=== PATIENT | female | born 1985 | race Caucasian/White ===

== ENCOUNTER 2018-01-27 09:08 | Emergency (ER) | payer BC, OTHER ==
[2018-01-27 10:01] VITALS: BP 132/79
--- NOTE | 2018-01-27 11:03 | UC ---
Shoulder Pain HPI - HPI Summary HPI Summary: Pt c/o right arm, shoulder and upper back pain that began ~ mid november. Pt had an "episode" of right hand discoloration, numbness and tingling. Pt still has c/o right hand tingling and pain in right arm and hand. Pt was seen by [facility] Ed and PCP , had CT head, neck and doppler of right upper arm and xray of shoulder, no positive findings with any imaging studies. Pt c/o to have painful tingling in right hand and arm. Has trigger point tenderness in right upper back. c/o decreased ROM of right shoulder and think right shoulder is "lower than left" - History of Current Complaint Chief Complaint: UCUpperExtremity Stated Complaint: RIGHT SHOULDER/ARM PAIN & NUMBNESS Time Seen by Provider: 01/27/18 10:10 Hx Obtained From: Patient Hx Last Menstrual Period: 01/12 ?: No Onset/Duration: Sudden Onset, Lasting Weeks, Still Present Timing: Constant Severity Initially: Moderate Severity Currently: Moderate Pain Intensity: 7 Pain Scale Used: 0-10 Numeric Character: Dull, Aching, Stiffness, Burning Aggravating Factor(s): Movement Alleviating Factor(s): Nothing Associated Signs And Symptoms: Positive: Numbness/Tingling Related History: Dominant Hand Right - Risk Factors Non-Orthopedic Risk Factor: Negative DVT Risk Factors: Negative Septic Arthritis Risk Factor: Negative - Allergies/Home Medications Allergies/Adverse Reactions: Allergies Allergy/AdvReac Type Severity Reaction Status Date / Time heparin flush Allergy Anaphylatic Uncoded 01/27/18 09:34 Shock steroid infusion Allergy pt has had Uncoded 01/27/18 09:38 steroid infusion since initial reaction tegederm Allergy Unknown Uncoded 01/27/18 09:34 Reaction Details Home Medications: Home Medications Acetaminophen [Tylenol] 1,500 mg PO DAILY PRN 01/27/18 [History Confirmed ] Amitriptyline TAB* [Elavil TAB*] 30 mg PO BEDTIME 01/27/18 [History Confirmed ] Duloxetine HCl 60 mg PO QAM 01/27/18 [History Confirmed 01/27/18] Ergocalciferol (Vitamin D2) [Vitamin D2] 50,000 unit PO WEEKLY 01/27/18 [ History Confirmed 01/27/18] Glatiramer Acetate [Copaxone] 20 mg SC DAILY 01/27/18 [History Confirmed ] Ibuprofen TAB* [Motrin TAB* 800 MG] 800 mg PO Q24H PRN 01/27/18 [History Confirmed 01/27/18] Multivitamin [Multivitamins] 1 cap PO DAILY 01/27/18 [History Confirmed 01/27/18 ] Omeprazole CAP* [Prilosec CAP* 20 MG] 20 mg PO BEDTIME 01/27/18 [History Confirmed 01/27/18] Otc Eye Vitamin 1 tab PO DAILY 01/27/18 [History] Topiramate TAB(*) [Topamax 100 mg tab] 100 mg PO BEDTIME 01/27/18 [History Confirmed 01/27/18] PMH/Surg Hx/FS Hx/Imm Hx Previously Healthy: Yes - Surgical History Surgical History: Yes Surgery Procedure, Year, and Place: 1997 appy - Family History Known Family History: Positive: Cardiac Disease - Social History Occupation: Employed Full-time Alcohol Use: Rare Substance Use Type: None Smoking Status (MU): Light Every Day Tobacco Smoker Have You Smoked in the Last Year: Yes Review of Systems Constitutional: Negative Skin: Negative Eyes: Negative ENT: Negative Respiratory: Negative Cardiovascular: Negative Gastrointestinal: Negative Genitourinary: Negative Motor: Decreased ROM - right shoulder Neurovascular: Negative Musculoskeletal: Arthralgia, Decreased ROM, Myalgia - right shoulder, upper back Neurological: Weakness - right shoulder, Paresthesia Psychological: Negative Is Patient Immunocompromised?: No All Other Systems Reviewed And Are Negative: Yes Physical Exam Triage Information Reviewed: Yes Appearance: Well-Appearing Vital Signs: Initial Vital Signs Temp 98.6 F 01/27/18 09:46 Pulse 96 01/27/18 09:46 Resp 20 01/27/18 09:46 BP 132/79 01/27/18 09:46 Pulse Ox 100 01/27/18 09:46 Vital Signs Reviewed: Yes Eye Exam: Normal ENT Exam: Normal Dental Exam: Normal Neck exam: Normal Respiratory Exam: Normal Cardiovascular Exam: Normal Musculoskeletal Exam: Other Musculoskeletal: Positive: Strength Limited @ - right arm, hand,, ROM Limited @ - right shoulder,, Other: - trigger point tenderness, right side upper back. Neurological Exam: Normal Psychological Exam: Normal Skin Exam: Normal Shoulder Course/Dx - Differential Dx/Diagnosis Differential Diagnosis/HQI/PQRI: Rotator Cuff Injury, Tendonitis, Thoracic Outlet Syndrome Provider Diagnoses: trigger point tenderness right upper back. rotator cuff injuryright shoulder. tendonitis right shoulder Discharge - Sign-Out/Discharge Documenting (check all that apply): Discharge - Discharge Plan Condition: Stable Disposition: HOME Prescriptions: Cyclobenzaprine TAB* [Flexeril 10 MG TAB*] 10 mg PO TID PRN #30 tab PRN Reason: Pain predniSONE TAB* [Deltasone TAB*] 40 mg PO DAILY #8 tab Patient Education Materials: Trigger Point Pain (ED), Peripheral Neuropathy (ED ), Arthralgia (ED), Exercises for Shoulder Flexion and Extension (ED) Referrals: Bronson Cho MD [Medical Doctor] - Shreyas Ceja MD [Primary Care Provider] - Additional Instructions: Please follow up with your PCP or return to clinic as needed. We have referred you to an orthopedic provider for you to follow up with regarding your presenting complaint of right shoulder pain. Please keep your appointment with your neurologist for continuity of care. - Billing Disposition and Condition Condition: STABLE Disposition: HOME
== END 2018-01-27 10:40 | disposition home or self-care (01) ==
LOC: UCCORT 09:08
DX: M77.9 Enthesopathy, unspecified (principal); S49.91XA Unspecified injury of right shoulder and upper arm, initial encounter; X58.XXXA Exposure to other specified factors, initial encounter; M54.89 Other dorsalgia; F17.200 Nicotine dependence, unspecified, uncomplicated; Z88.8 Allergy status to other drugs, medicaments and biological substances
CPT/HCPCS: 99202; G0463

== ENCOUNTER 2018-04-23 10:59 | Emergency (ER) | payer BC ==
[2018-04-23 11:23] VITALS: BP 117/68
--- NOTE | 2018-04-23 11:38 | UC ---
Ear Complaint HPI - HPI Summary HPI Summary: Pt presents to the urgent care with complaints of right ear pain. Patient states her to eat lunch she's been having intermittent pain in her ear. Patient states over the last 5 days has had progressive pressure, fullness, and water sounds. Patient states she also has some sinus congestion and a cough. Patient denies fevers or chills. No nausea or vomiting. Patient took Sudafed 1 dose with little relief. Patient is supposed to take Claritin daily but does not. Patient does smoke cigarettes. Patient is on immunosuppressant for MS. Patient states she's been feeling a little weak and fatigued and so concerned she has infection. Patient presents with her mother who assisted with history. Patient's medications reviewed this visit - History of Current Complaint Chief Complaint: UCRespiratory Stated Complaint: EAR PAIN Time Seen by Provider: 04/23/18 11:28 Hx Obtained From: Patient, Family/[employer] Hx Last Menstrual Period: 04/08/18 ?: Yes Onset/Duration: Gradual Onset Severity Initially: Moderate Severity Currently: Moderate Pain Intensity: 6 Pain Scale Used: 0-10 Numeric - Allergies/Home Medications Allergies/Adverse Reactions: Allergies Allergy/AdvReac Type Severity Reaction Status Date / Time heparin flush Allergy Anaphylatic Uncoded 04/23/18 11:11 Shock steroid infusion Allergy pt has had Uncoded 04/23/18 11:11 steroid infusion since initial reaction tegederm Allergy Unknown Uncoded 04/23/18 11:11 Reaction Details Home Medications: Home Medications Dimethyl Fumarate(NF) [Tecfidera(NF)] 240 mg PO BID 04/23/18 [History Confirmed 04/23/18] PMH/Surg Hx/FS Hx/Imm Hx Previously Healthy: Yes Neurological History: Other Other Neurological History: multiple sclerosis - Surgical History Surgical History: Yes Surgery Procedure, Year, and Place: 1997 appy - Family History Known Family History: Positive: Cardiac Disease - Social History Occupation: Employed Part-time Lives: With Family Alcohol Use: None Substance Use Type: None Smoking Status (MU): Light Every Day Tobacco Smoker Type: Cigarettes Amount Used/How Often: 5 CIGS A DAY Have You Smoked in the Last Year: Yes Review of Systems Constitutional: Negative Skin: Negative ENT: Ear Ache, Nasal Discharge All Other Systems Reviewed And Are Negative: Yes Physical Exam - Summary Physical Exam Summary: Vital Signs Reviewed: Yes A+Ox3, no distress Eyes: Conjunctiva Clear, CAITLIN, EOM intact and full ENT: Hearing grossly normal left TM wnl Right TM + fluid, no erythema, no buldge turbinates inflammed + PND no exudate, uvula midline neck: supple Respiratory: Positive: No respiratory distress, No accessory muscle use CTA throughout no w/r Cardiovascular: skin color reflect adequate perfusion RRR nl s1, s2 no m/r soft + BS no guarding, no rebound Musculoskeletal Exam: SIERRA x 4 without difficulty Neurological: Positive: Alert, ambulatory without difficulty Psychological: Positive: Normal Response To Family Skin: Positive: no rash, no ecchymosis Triage Information Reviewed: Yes Vital Signs: Initial Vital Signs Temp 98.2 F 04/23/18 11:15 Pulse 82 04/23/18 11:15 Resp 20 04/23/18 11:15 BP 117/68 04/23/18 11:15 Pulse Ox 99 04/23/18 11:15 Ear Complaint Course/Dx - Course Course Of Treatment: Patient 32-year-old female with a history of MS for immunosuppressants. Patient presents with progressive right ear pain and right sinus pressure. On exam patient with food in her right ear but no erythema. Patient with some inflamed turbinates tenderness over her right next a sense of postnasal drip. Will prescribe amoxicillin. Motrin, Tylenol. Encourage patient to resume her Claritin and discontinue smoking. Encourage patient to follow up with primary care provider. Return precautions discussed. Patient comfortable and agreeable with plan. - Differential Dx/Diagnosis Provider Diagnoses: sinusitis Discharge - Sign-Out/Discharge Documenting (check all that apply): Discharge/Admit/Transfer - Discharge Plan Condition: Stable Disposition: HOME Prescriptions: Amoxicillin PO (*) [Amoxicillin 500 MG CAP*] 500 mg PO Q12H #14 cap Patient Education Materials: Ear Infection (ED) Referrals: Shreyas Ceja MD [Primary Care Provider] - Additional Instructions: - Stay well hydrated. Drink plenty of non-alcoholic, non-caffinated beverages. - Alternate ibuprofen (Advil, Motrin) 600mg and Tylenol every 3 hours for pain or fever. Take with food. Do NOT take for more than 4-5 days. - These infections are spread by secretions - do NOT share eating or drinking utensils - clean items you share with other people such as cell phones, computer mouse, TV remote, computer tablets,etc. Once you have been antibiotics for 2 days, change your toothbrush and your pillowcase. - get plenty of restful sleep - humidify the air in the room where you sleep - boil water, run a hot steam shower, vaporizer, cups of water by heat register - okay to take over the counter decongestant and cough medication - resume your claritin - work to decrease smoking - contact your doctor or return with questions or concerns - Billing Disposition and Condition Condition: STABLE Disposition: Home
== END 2018-04-23 11:57 | disposition home or self-care (01) ==
LOC: UCCORT 10:59
DX: J32.9 Chronic sinusitis, unspecified (principal); Z88.8 Allergy status to other drugs, medicaments and biological substances; I05.0 Rheumatic mitral stenosis; F17.210 Nicotine dependence, cigarettes, uncomplicated
CPT/HCPCS: 99212; G0463

== ENCOUNTER 2018-08-10 09:26 | Emergency (ER) | payer BC ==
--- OUTSIDE RECORDS SUMMARY | 2018-08-10 09:33 | XMS REPORT | Continuity of Care Document ---
:1985 External Reference #:[id number] Author Name Shreyas Ceja M.D. Address [address] [place] [address] Care Team Providers Name Role Phone Shreyas Ceja M.D. Care Team Information Biometrics Specialist Unavailable Payers Type Date Identification Numbers Payment Provider Subscriber Policy Number: [id number] RAE/NILE [employer]- Ppo Nati Correa PayID: [id number] [address] [address] [place] [address] Advance Directives Description No Information Available Problems Date Description Provider Status Onset: 09/15/2017 Multiple sclerosis Shreyas Ceja M.D. Active Note: DX'd 04/2014 Onset: 09/15/2017 Polycystic ovaries Shreyas Ceja M.D. Active Onset: 09/15/2017 Asthma Shreyas Ceja M.D. Active Onset: 09/15/2017 Syncope Shreyas Ceja M.D. Active Onset: 09/15/2017 Convulsion Shreyas Ceja M.D. Active Note: Paroxysmal Seizure Family History Date Family Member(s) Problem(s) Comments Father Unknown Mother Hx of Tuberculosis Mother Hypertension Mother Heart Disease Leaky Valves Grandfather Diabetes Maternal Grandmother Diabetes Maternal Social History Type Date Description Comments Sex Unknown Marital Status Legal Status: Never Lives With Mother Work Status Full-Time Employment ETOH Use Occasionally consumes alcohol Recreational Drug Use Denies Drug Use Tobacco Use Start: Unknown End: Patient is a former smoker Unknown Smoking Status Reviewed: 07/15/18 Patient is a former smoker Allergies, Adverse Reactions, Alerts Date Description Reaction Status Severity Comments 09/15/2017 Methylprednisolone Active possibly in conjunction with Heparin Medications Medication Date Status Form Strength Qnty SIG Indications Ordering Provider Chantix 06/29/ Active Tablets 1mg 60tab 1 twice a Z71.6 2017 s day Castellan os, M.D. Amitriptyline HCL / Active Tablets 10mg 90tab take 1-3 s tablets Castellan at os, M.D. bedtime as needed Topiramate / Active Tablets 100mg Unknown 0000 Duloxetine HCL / Active Caps DR 60mg 30cap one daily Part s Castellan os, M.D. Vitamin D / Active Capsules [id number] Unknown (Ergocalciferol) 0000 Ventolin HFA / Active Aerosol 108(90Base Unknown 0000 ) mcg/Act Tecfidera / Active Capsules 120mg take one Unknown 0000 DR tablet for a week twice a day until 03/18 then start 2 capsules twice a day.for total of 240 mg. Chantix Starting 05/26/ Hx Tablets 0.5mg X 11 53tab as Z71.6 Shreyas [facility] Oren 2017 - & 1 mg X s directed Castellan os, M.D. 2018 Nicotine 04/30/ Hx Patches 14mg/24HR 28uni 1 by Eliana.6 Shreyas 2017 - 24HR ts mouth Castellan 05/26/ every day os, M.D. 2018 Glatopa / Hx Soln 20mg/ml Unknown 0000 - Prefill 2017 Cyclobenzaprine / Hx Tablets 10mg Unknown HCL - 2017 Ibuprofen / Hx Tablets 600mg Unknown 0000 - 2017 Naproxen / Hx Tablets 500mg Unknown 0000 - 2017 Immunizations CPT Code Status Date Vaccine Lot # [id number] Given 09/15/2017 Influenza Vac,Quad,Split=>3 Yrs Flu QIV [id number] Given 01/16/2017 Influenza Vac,Quad,Split=>3 Yrs [id number] Given 11/15/2003 MMR Vital Signs Date Vital Result Comment 06/07/2018 9:54am Weight 225.00 lb BP Systolic 118 mmHg BP Diastolic 72 mmHg 04/30/2018 8:21am Weight 223.00 lb BP Systolic 108 mmHg BP Diastolic 72 mmHg Heart Rate 87 /min Body Temperature 98.4 F O2 % BldC Oximetry 98 % room air Respiratory Rate 18 /min 03/15/2018 11:14am Weight 223.00 lb BP Systolic 120 mmHg BP Diastolic 80 mmHg Height 63 inches 5'3" BMI (Body Mass Index) 39.5 kg/m2 01/21/2018 2:36pm Weight 226.00 lb BP Systolic 112 mmHg BP Diastolic 76 mmHg 12/16/2017 2:25pm Weight 224.00 lb BP Systolic 120 mmHg BP Diastolic 86 mmHg 09/15/2017 2:33pm Weight 220.00 lb BP Systolic 118 mmHg BP Diastolic 84 mmHg Height 63 inches 5'3" BMI (Body Mass Index) 39.0 kg/m2 Results Test Date Facility Test Result H/L Range Note CBS W/Automated 01/05/2018 [facility] White Blood 8.0 K/uL 3.1- 10.7 1 Diff [phone] Count Red Blood Count 4.36 M/uL 3.90-5.40 Hemoglobin 13.5 gm/dL 11.6-15.8 Hematocrit 38.6 % 36.0-46.1 Mean Cell Volume 88.5 fl 80.9-99.0 Mean Corpuscular HGB 31.0 pg 25.9-32.7 Mean Corpuscular HGB Conc 35.0 g/dL High 30.8-34.3 Platelet Count 295 K/uL 155-360 Red Cell Distri Width SD 41.5 fl 3-47 Red Cell Distri Width %CV 13.1 % 11.7-14.4 Mean Platelet Volume 8.9 fL 8.9-12.4 Neut% 65.3 % 40.4-72.8 Lymph % 25.3 % 20.0-42.0 Wasatch % 7.5 % 4.3-13.2 Eo% 1.5 % 0.0-6.6 Bas% 0.4 % 0.0-1.1 Neut# 5.19 K/uL 1.8-7.0 Lymph # 2.01 K/uL 1.0-4.0 Wasatch # 0.60 K/uL 0.3-0.9 Eos # 0.12 K/uL 0.0-0.5 Baso # 0.03 K/uL 0.0-0.1 Protime 01/05/2018 [facility] Protime 12.6 seconds 12.0-14.4 [phone] Inr 0.9 0.9-1.1 2 Laboratory test 01/05/2018 [facility] Act Partial 28.0 seconds 23.4-35.0 3 finding [phone] Thrombo Time Comprehensive 01/05/2018 [facility] Glucose 94 mg/dL 74-106 Metabolic Panel [phone] BUN 10 mg/dL 7-18 Creatinine 0.7 mg/dL 0.6-1.3 Glom Filtration Rate, Estimate >60 mL/min >60 If >60 mL/min >60 4 BUN/Creat 14.2 ratio Sodium 142 mmol/L 136-145 Potassium 3.9 mmol/L 3.5-5.1 Chloride 109 mmol/L High 98-107 Carbon Dioxide 24 mmol/L 21-32 Anion Gap 9 mEq/L 8-16 Calcium 8.1 mg/dL Low 8.5-10.1 Total Protein 7.1 g/dL 6.4-8.2 Albumin 3.6 g/dL 3.4-5.0 Globulin 3.5 g/dL 1.9-4.3 Alb/Glob 1.0 ratio Bilirubin,Total 0.2 mg/dL 0.2-1.0 Sgot/Ast 15 U/L 15-37 SGPT/Alt 26 U/L 12-78 Alkaline Phosphatase 59 U/L 45-117 Laboratory test finding 01/05/2018 [facility] CK 119 U/L 26-192 [phone] Troponin-I < 0.015 ng/mL 5 Ua RFX Micro & Culture II 01/05/2018 [facility] Urine Color YELLOW Yellow [phone] Urine Clarity CLEAR Clear Urine Glucose - Dipstick NEGATIVE mg/dL Negative Urine Bilirubin - Dipstick NEGATIVE Negative Urine Ketone NEGATIVE mg/dL Negative Urine Specific Brady <=1.005 Low 1.010-1.030 Urine Blood NEGATIVE Negative Urine PH 6.0 Low 6.5-7.5 Urine Protein - Dipstick NEGATIVE mg/dL Negative Urine Urobilinogen - Dipstick 0.2 E.U./dL 0.2-1.0 Urine Nitrite - Dipstick NEGATIVE Negative Urine Leuk Esterase NEGATIVE Negative Source: URINE, CLEAN CAT <SEE NOTE> 6 Laboratory test 10/02/2017 [facility] Thyroid Stim 0.96 uIU/mL 0.30-4.20 7 finding [phone] Hormone Vitamin D,25-Hydroxy 39.0 ng/mL 30.0-100.0 8 Comprehensive Metabolic 10/02/2017 [facility] Glucose 107 mg/dL High 74-106 Panel [phone] BUN 18 mg/dL 7-18 Creatinine 0.9 mg/dL 0.6-1.3 Glom Filtration Rate, Estimate >60 mL/min >60 If >60 mL/min >60 9 BUN/Creat 20.0 ratio Sodium 141 mmol/L 136-145 Potassium 4.1 mmol/L 3.5-5.1 Chloride 107 mmol/L 98-107 Carbon Dioxide 26 mmol/L 21-32 Anion Gap 8 mEq/L 8-16 Calcium 9.0 mg/dL 8.5-10.1 Total Protein 7.2 g/dL 6.4-8.2 Albumin 3.6 g/dL 3.4-5.0 Globulin 3.6 g/dL 1.9-4.3 Alb/Glob 1.0 ratio Bilirubin,Total 0.2 mg/dL 0.2-1.0 Sgot/Ast 13 U/L Low 15-37 10 SGPT/Alt 36 U/L 12-78 Alkaline Phosphatase 62 U/L 45-117 CBC 10/02/2017 [facility] White Blood Count 7.0 K/uL 3.1-10.7 [phone] Red Blood Count 4.61 M/uL 3.90-5.40 Hemoglobin 14.0 gm/dL 11.6-15.8 Hematocrit 41.4 % 36.0-46.1 Mean Cell Volume 89.8 fl 80.9-99.0 Mean Corpuscular HGB 30.4 pg 25.9-32.7 Mean Corpuscular HGB Conc 33.8 g/dL 30.8-34.3 Platelet Count 307 K/uL 155-360 Red Cell Distri Width %CV 12.5 % 11.7-14.4 Mean Platelet Volume 9.1 fL 8.9-12.4 1 RT ARM TURNING PURPLE, NUMB, SWELLING 2 THERAPEUTIC INR RANGE: 2.0 - 3.0 DVT, Pulmonary embolus, prophylaxis against venous thrombosis or systemic embolization in high risk patients. 2.5 - 3.5 Mechanical heart valves 3 Is patient on anticoagulants? Coumadin 4 Note: Persistent reduction for 3 months or more in an eGFR <60 mL/min/1.73 m2 defines CKD. Patients with eGFR values >/=60 mL/min/1.73 m2 may also have CKD if evidence of persistent proteinuria is present. The original MDRD equation for estimated GFR is not valid for patients less than 18 years of age. Additional information may be found at www.kdoqi.org. 5 0.0 - 0.045 ng/mL: Normal 0.046 - 0.5 ng/mL: Suggestive 0.6 - 1.5 ng/mL: Consistent 6 URINE, CLEAN CATCH 7 F32.9 8 Vitamin D deficiency has been defined by the [place] of [employer] and an Endocrine Society practice guideline as a level of serum 25-OH vitamin D less than 20 ng/mL (1,2). The Endocrine Society went on to further define vitamin D insufficiency as a level between 21 and 29 ng/mL (2). 1. IOM ([place] of [employer]). 2010. Dietary reference intakes for calcium and D. [place]: The National Academies Press. 2. Natividad MF, Damaris [place], Aleah WINSTON, et al. Evaluation, treatment, and prevention of vitamin D deficiency: an Endocrine Society clinical practice guideline. JCEM. 2010; 96(7):1911-30. Performed at: RN - [facility] [address] [id number] Technical Training Manager: Aysha Christy MD, Phone: [phone] Note: Persistent reduction for 3 months or more in an eGFR <60 mL/min/1.73 m2 defines CKD. Patients with eGFR values >/=60 mL/min/1.73 m2 may also have CKD if evidence of persistent proteinuria is present. The original MDRD equation for estimated GFR is not valid for patients less than 18 years of age. Additional information may be found at www.kdoqi.org. 10 Values below the stated reference ranges of AST and ALT can be seen in normal populations. Clinical correlation is suggested. Procedures Date Code Description Status 05/26/2018 26242 Cerumen Removal w/instrument Completed Encounters Type Date Location Provider Dx Diagnosis Office Visit 07/15/2018 Main Office Shreyas R56.9 Unspecified 11:00a Belinda Ceja convulsions Office Visit 06/29/2018 Main Office Shreyas R56.9 Unspecified 9:45a Belinda Ceja convulsions Z71.6 Tobacco abuse counseling M25.511 Pain in right shoulder Office Visit 06/07/2018 9:45a Main Office Shreyas Ceja R56.9 Unspecified BubbaDJuan convulsions Office Visit 04/30/2018 8:15a Main Office Shreyas Ceja H66.91 Otitis media, M.D. unspecified, right ear Z71.6 Tobacco abuse counseling Office Visit 03/15/2018 11:15a Main Office Shreyas Ceja Z00.01 Encounter for Belinda general adult medical exam w abnormal findings G35 Multiple sclerosis J45.909 Unspecified asthma, uncomplicated Z71.6 Tobacco abuse counseling E28.2 Polycystic ovarian syndrome F32.9 Major depressive disorder, single episode, unspecified Office Visit 01/21/2018 2:30p Main Office Shreyas S00.83xD Contusion of Belinda Ceja other part of head, subsequent encounter G47.30 Sleep apnea, unspecified M25.511 Pain in right shoulder Office Visit 12/16/2017 Main Office Shreyas Regalado45.909 Unspecified asthma, 2:30p Belinda Ceja uncomplicated G35 Multiple sclerosis Z71.6 Tobacco abuse counseling Office Visit 09/15/2017 Main Office Shreyas Regalado45.909 Unspecified asthma, 2:00p Belinda Ceja uncomplicated G35 Multiple sclerosis E28.2 Polycystic ovarian syndrome Z71.6 Tobacco abuse counseling F32.9 Major depressive disorder, single episode, unspecified Z23 Encounter for immunization Plan of Treatment Future Appointment(s):03/16/2019 10:00 am - Shreyas Ceja M.D. at [id number]/15/2018 - Shreyas Ceja M.D.R56.9 Unspecified convulsionsFollow up:3 months
[2018-08-10 09:39] VITALS: BP 138/66
--- NOTE | 2018-08-10 10:01 | UC ---
Respiratory Complaint HPI - HPI Summary HPI Summary: 33 yo female presents with sinus pain/pressure/congestion and post nasal drip for 1 week. Last night she developed a sore throat. She has not been taking anything OTC. Denies fever, chills, cough, SOB, rash. - History of Current Complaint Chief Complaint: UCRespiratory Stated Complaint: SORE THROAT,COUGH Time Seen by Provider: 08/10/18 10:01 Hx Obtained From: Patient Hx Last Menstrual Period: 08/07/18 Onset/Duration: Gradual Onset Severity Initially: Mild Severity Currently: Moderate Pain Intensity: 5 Pain Scale Used: 0-10 Numeric - Allergies/Home Medications Allergies/Adverse Reactions: Allergies Allergy/AdvReac Type Severity Reaction Status Date / Time heparin flush Allergy Anaphylatic Uncoded 08/10/18 09:34 Shock tegederm Allergy Unknown Uncoded 08/10/18 09:34 Reaction Details Home Medications: Home Medications Melatonin 5 mg PO BEDTIME 08/10/18 [History Confirmed 08/10/18] Varenicline (NF) [Chantix 1 MG TAB (NF)] 1 mg PO BID 08/10/18 [History Confirmed 08/10/18] PMH/Surg Hx/FS Hx/Imm Hx - Additional Past Medical History Additional PMH: Headaches GI/ History: Gastroesophageal Reflux Psychological History: Anxiety, Depression - Surgical History Surgical History: Yes Surgery Procedure, Year, and Place: 1997 app - Family History Known Family History: Positive: Cardiac Disease - Social History Occupation: Employed Full-time Lives: With Family Alcohol Use: None Substance Use Type: None Smoking Status (MU): Light Every Day Tobacco Smoker Type: Cigarettes Amount Used/How Often: 5 CIGS A DAY Have You Smoked in the Last Year: Yes When Did the Patient Quit Smoking/Using Tobacco: few months Review of Systems Constitutional: Negative Skin: Negative Eyes: Negative ENT: Sore Throat, Nasal Discharge, Sinus Congestion, Sinus Pain/Tenderness Respiratory: Negative Cardiovascular: Negative Gastrointestinal: Negative Neurovascular: Negative Neurological: Negative Psychological: Negative All Other Systems Reviewed And Are Negative: Yes Physical Exam - Summary Physical Exam Summary: GENERAL: NAD. WDWN. No pain distress. SKIN: No rashes, sores, lesions, or open wounds. HEENT: Head: AT/NC Eyes: EOM intact. Conjunctiva clear without inflammation or discharge. Ears: Hearing grossly normal. TMs intact, no bulging, erythema, or edema. Nose: Nasal mucosa mildly swollen and erythematous with yellow discharge. TTP maxillary and frontal sinus. Throat: Posterior oropharynx without exudates, erythema, or tonsillar enlargement. Uvula midline. NECK: Supple. Nontender. No lymphadenopathy. CHEST: CTAB. No r/r/w. No accessory muscle use. Breathing comfortably and in no distress. CV: RRR. Without m/r/g. Pulses intact. NEURO: Alert. PSYCH: Age appropriate behavior. Triage Information Reviewed: Yes Vital Signs: Initial Vital Signs Temp 97.3 F 08/10/18 09:32 Pulse 102 08/10/18 09:32 Resp 18 08/10/18 09:32 BP 138/66 08/10/18 09:32 Pulse Ox 100 08/10/18 09:32 Vital Signs Reviewed: Yes Diagnostic Evaluation - Laboratory O2 Sat by Pulse Oximetry: 100 Respiratory Course/Dx - Course Course Of Treatment: Sinusitis - Differential Dx/Diagnosis Provider Diagnoses: Sinusitis Discharge - Sign-Out/Discharge Documenting (check all that apply): Patient Departure All imaging exams completed and their final reports reviewed: No Studies - Discharge Plan Condition: Stable Disposition: HOME Prescriptions: Amoxicillin PO (*) [Amoxicillin 500 MG CAP*] 500 mg PO Q12H #14 cap Patient Education Materials: Sinusitis (ED) Referrals: Shreyas Ceja MD [Primary Care Provider] - Additional Instructions: If you develop a fever, shortness of breath, chest pain, new or worsening symptoms - please call your PCP or go to the ED. - Billing Disposition and Condition Condition: STABLE Disposition: Home
== END 2018-08-10 10:09 | disposition home or self-care (01) ==
LOC: UCCORT 09:26
DX: J32.9 Chronic sinusitis, unspecified (principal); F17.210 Nicotine dependence, cigarettes, uncomplicated; Z88.8 Allergy status to other drugs, medicaments and biological substances
CPT/HCPCS: 99212; G0463

== ENCOUNTER 2018-09-03 16:33 | Emergency (ER) | payer BC ==
--- NOTE | 2018-09-03 16:53 | UC ---
Throat Pain/Nasal Mert HPI - History of Current Complaint Stated Complaint: ST,CONGESTION Time Seen by Provider: 09/03/18 16:53 Hx Last Menstrual Period: 08/07/18 - Allergies/Home Medications Allergies/Adverse Reactions: Allergies Allergy/AdvReac Type Severity Reaction Status Date / Time Adhesive Tape Allergy Rash Verified 09/03/18 16:51 [Tegaderm Dressing] heparin Allergy Anaphylatic Verified 09/03/18 16:51 Shock PMH/Surg Hx/FS Hx/Imm Hx - Surgical History Surgical History: Yes Surgery Procedure, Year, and Place: 1997 appy - Family History Known Family History: Positive: Cardiac Disease - Social History Alcohol Use: None Substance Use Type: None Smoking Status (MU): Light Every Day Tobacco Smoker Type: Cigarettes Amount Used/How Often: 5 CIGS A DAY Have You Smoked in the Last Year: Yes When Did the Patient Quit Smoking/Using Tobacco: few months Discharge - Discharge Plan Referrals: Shreyas eCja MD [Primary Care Provider] -
--- NOTE | 2018-09-03 17:47 | UC ---
Throat Pain/Nasal Mert HPI - HPI Summary HPI Summary: 33 yo patient c/o sore throat for one day. Productive cough and difficulty sleeping since the middle of last night. No known fever. PMH of depression, GERD , pseudo seizures, migraine, reactive airway disease and MS. She is about to have infusion of Tysabri in 3 days, which is a new treatment. LMD: 08-31-18. Not sexually active. She has been taking chantix and is on remission from smoking - History of Current Complaint Chief Complaint: UCRespiratory Stated Complaint: ST,CONGESTION Time Seen by Provider: 09/03/18 16:53 Hx Obtained From: Patient, Family/[employer] Hx Last Menstrual Period: 08/31/18 ?: No Onset/Duration: Sudden Onset, Lasting Days Severity: Moderate Pain Intensity: 5 Cough: Nonproductive Associated Signs & Symptoms: Positive: Fever - Epiglottits Risk Factors Epiglottis Risk Factors: Negative - Allergies/Home Medications Allergies/Adverse Reactions: Allergies Allergy/AdvReac Type Severity Reaction Status Date / Time Adhesive Tape Allergy Rash Verified 09/03/18 16:51 [Tegaderm Dressing] heparin Allergy Anaphylatic Verified 09/03/18 16:51 Shock PMH/Surg Hx/FS Hx/Imm Hx - Additional Past Medical History Additional PMH: MS, pseudo seizures GI/ History: Gastroesophageal Reflux Neurological History: Seizures, Migraine Psychological History: Depression - Surgical History Surgical History: Yes Surgery Procedure, Year, and Place: Appendectomy, 1997, [place] - Family History Known Family History: Positive: Cardiac Disease - Social History Alcohol Use: None Substance Use Type: None Smoking Status (MU): Former Smoker Type: Cigarettes Amount Used/How Often: 5 CIGS A DAY Length of Time of Smoking/Using Tobacco: 1/2 PPD x 18 Years Have You Smoked in the Last Year: Yes When Did the Patient Quit Smoking/Using Tobacco: ~07/05/18 Review of Systems All Other Systems Reviewed And Are Negative: Yes ENT: Positive: Sore Throat, Sinus Congestion Respiratory: Positive: Cough Physical Exam Triage Information Reviewed: Yes Appearance: Well-Appearing, Well-Nourished, Obese Vital Signs: Initial Vital Signs Temp 99.3 F 09/03/18 16:48 Pulse 108 09/03/18 16:48 Resp 16 09/03/18 16:48 BP 125/77 09/03/18 16:48 Pulse Ox 100 09/03/18 16:48 Vital Signs Reviewed: Yes Eyes: Positive: Conjunctiva Clear ENT: Positive: Hearing grossly normal, Pharyngeal erythema, TMs normal, Uvula midline Neck: Positive: Supple, Nontender, No Lymphadenopathy Respiratory: Positive: Chest non-tender, Lungs clear, Normal breath sounds, No respiratory distress Cardiovascular: Positive: RRR, No Murmur, Pulses Normal Abdomen Description: Positive: Nontender Throat Pain/Nasal Course/Dx - Course Course Of Treatment: patient felt partial relief with duoneb nebulization, but continues to cough. Wet reading of CXR negative for infiltrates. POC influenza and strep are negative. PE and symptoms compatible with Acute bronchitis. albuterol and flovent HFA inhalers, tessalon and wait and see prescription of zithromax have been sent. F/u with PCP in 1 week - Differential Dx/Diagnosis Provider Diagnoses: Acute Bronchitis Discharge - Sign-Out/Discharge Documenting (check all that apply): Patient Departure All imaging exams completed and their final reports reviewed: Yes - Discharge Plan Condition: Stable Disposition: HOME Prescriptions: Albuterol HFA INHALER* [Ventolin HFA Inhaler*] 1 puff INH Q4H PRN #1 mdi PRN Reason: Cough Azithromycin TAB* [Zithromax TAB (Z-FRANCES) 250 mg #6 tabs] 2 tab PO .TODAY, THEN 1 DAILY #1 frances Benzonatate CAP* [Tessalon 100 MG CAP*] 100 mg PO TID PRN 7 Days #20 cap PRN Reason: Cough Fluticasone HFA 220 mcg(NF) [Flovent HFA 220 Mcg(NF)] 1 puff INH BID 10 Days #1 mdi Referrals: Shreyas Ceja MD [Primary Care Provider] - - Billing Disposition and Condition Condition: STABLE Disposition: Home
[2018-09-03] MEDS ORDERED: Albuterol/Ipratropium NEB.SOL* Albuterol 2.5 MG/Ipratropium 0.5 MG 3 ML INH ONE (17:52)
[2018-09-03 19:08] VITALS: BP 138/76
--- NOTE | 2018-09-04 12:11 | UC ---
- Progress Note Progress Note: final read cxr NAD, no further action required Discharge - Sign-Out/Discharge Documenting (check all that apply): Post-Discharge Follow Up All imaging exams completed and their final reports reviewed: Yes - Discharge Plan Condition: Stable Disposition: HOME Prescriptions: Albuterol HFA INHALER* [Ventolin HFA Inhaler*] 1 puff INH Q4H PRN #1 mdi PRN Reason: Cough Azithromycin TAB* [Zithromax TAB (Z-FRANCES) 250 mg #6 tabs] 2 tab PO .TODAY, THEN 1 DAILY #1 frances Benzonatate CAP* [Tessalon 100 MG CAP*] 100 mg PO TID PRN 7 Days #20 cap PRN Reason: Cough Fluticasone HFA 220 mcg(NF) [Flovent HFA 220 Mcg(NF)] 1 puff INH BID 10 Days #1 mdi Patient Education Materials: Albuterol (By breathing), Azithromycin (By mouth) , Fluticasone (By breathing), Acute Bronchitis (ED) Forms: *Work Release Referrals: Shreyas Ceja MD [Primary Care Provider] - - Billing Disposition and Condition Condition: STABLE Disposition: Home
== END 2018-09-03 19:26 | disposition home or self-care (01) ==
LOC: UCCORT 16:33
DX: J20.9 Acute bronchitis, unspecified (principal); Z88.8 Allergy status to other drugs, medicaments and biological substances; Z91.048 Other nonmedicinal substance allergy status; Z87.891 Personal history of nicotine dependence
CPT/HCPCS: 71046; 87651; 99212; A9270-GY; G0463